=== PATIENT | female | born 1985 | race Caucasian/White ===

== ENCOUNTER → 2017-11-29 07:45 | Outpatient (CLI) | payer BC, SELFPAY ==
--- NOTE | 2017-11-29 07:51 | US_ITS ---
STUDY: ABDOMINAL ULTRASOUND - RIGHT UPPER QUADRANT REASON FOR VISIT: Female, 31 years old. Abdominal/right upper quadrant pain. TECHNIQUE: Ultrasound evaluation of the right upper quadrant was performed with real-time and static cisneros-scale imaging. TECHNICAL QUALITY: Adequate. COMPARISON: None. FINDINGS: Liver: The liver measures 16.9 cm. There is mild increased echogenicity consistent with a degree of fatty infiltration. The bile ducts are within normal limits. There is hepatic color flow. The direction of portal flow is hepatopetal. There is no demonstrated mass lesion. Gallbladder: Normal distended gallbladder. The gallbladder wall measures 2.3 mm. There is a negative sonographic Galvez's sign. There is no pericholecystic fluid. There are no gallstones. Common Bile Duct (C.B.D.): The common bile duct measures 3.1 mm. Pancreas: Normal size of the head, body and tail of the pancreas. There is normal echogenicity of the pancreas. There is no demonstrated pancreatic mass or cyst. Right Kidney: Normal size of the right kidney. The right kidney measures 10.9 x 5.0 x 4.4 cm. Normal renal cortex. The right cortex measures 1.2 cm. There is no demonstrated renal mass or cyst. There is no right hydronephrosis. US/Gallbladder IMPRESSION: Mild fatty infiltration of the liver, otherwise normal right upper quadrant ultrasound examination. Electronically Signed: Harish Elkins MD at 11:42 EDT , Service support ,
== END ==
PROVIDERS: Family Provider Family Medicine; PCP Family Medicine; Visit Provider Family Medicine
DX: R10.9 Unspecified abdominal pain (principal)
CPT/HCPCS: 76705

== ENCOUNTER → 2017-12-13 13:52 | Outpatient (CLI) | payer BC, SELFPAY ==
[2017-12-19 10:50] LABS: HPV Reflexed? NOT INDICATED
== END ==
PROVIDERS: Visit Provider Obstetrics & Gynecology
DX: Z12.4 Encounter for screening for malignant neoplasm of cervix (principal)
CPT/HCPCS: 88175; G0145

== ENCOUNTER → 2017-12-18 11:46 | Outpatient (CLI) | payer BC, SELFPAY ==
--- NOTE | 2017-12-18 11:51 | NM_ITS ---
CLINICAL: 32-year-old female with reported history of right upper quadrant abdominal pain. RADIONUCLIDE HEPATOBILIARY SCINTIGRAPHY COMPARISON: Abdominal ultrasound report 11/29/2017 FINDINGS: Following the intravenous administration of 5.4 mCi of 99m Tc Mebrofenin, hepatobiliary images reveal:. 1. Relatively prompt and homogeneous radiopharmaceutical concentration is noted by a normal sized liver. No parenchymal defects are identified. 2. Gallbladder activity is identified at 10 minutes post radiopharmaceutical administration. 3. Small intestinal tract is observed at 30 minutes following tracer injection. 4. Washout of the radiopharmaceutical by the hepatic parenchyma appears qualitatively normal. The patient was administered a fatty meal (8 ounces Boost). The post fatty meal ingestion gallbladder ejection fraction calculated at 60 minutes was noted to be 16.0 % (normal greater than 30%). NM/Hepatobilliary Imaging IMPRESSION: 1. ABNORMAL 99m Tc Mebrofenin hepatobiliary imaging examination with fatty meal ingestion. A. A gallbladder ejection fraction calculated to be less than 30% following the administration of an ingested fatty meal is consistent with the presence of functional hepatobiliary disease (gallbladder and/or sphincter of Oddi dyskinesia) and/or organic hepatobiliary disease (chronic acalculous cholecystitis and/or cystic duct syndrome) in patients with intermediate to high pretest probabilities of hepatobiliary illness. (Brett and Yandel, J Nucl Med 43: 1603, 2002). Electronically Signed: Jesse Perez DO at 23:26 EDT Tel , Service support ,
== END ==
LOC: NM 11:48
PROVIDERS: Family Provider Family Medicine; PCP Family Medicine; Visit Provider Family Medicine
DX: R10.9 Unspecified abdominal pain (principal)
CPT/HCPCS: 78226; A9537

== ENCOUNTER → 2017-12-22 10:36 | Outpatient (CLI) | payer BC, SELFPAY ==
[2017-12-22 12:09] LABS: AST(SGOT) 15 U/L (15-37); Alanine Aminotransfer ALT/SGPT 36 U/L (13-56); Albumin, Serum 3.3 g/dL (3.2-5.0); Alkaline Phosphatase 72 U/L (45-117); Bilirubin, Direct 0.08 mg/dL (0.00-0.30); Globulin 3.8 g/dL (2.2-4.2); Protein, Total 7.1 g/dL (6.4-8.2)
== END ==
PROVIDERS: Family Provider Family Medicine; PCP Family Medicine; Visit Provider Surgery
DX: K76.0 Fatty (change of) liver, not elsewhere classified (principal)
CPT/HCPCS: 36415; 80076

== ENCOUNTER 2018-01-01 11:16 | Day surgery (SDC) | payer BC, SELFPAY ==
[2018-01-01] VITALS (7 sets, daily range): BP systolic 91–115; BP diastolic 57–72; PULSE 69–84; RESP 16–18; TEMP 36.2–36.4; O2SAT 94–100; BMI 40.8
--- NOTE | 2018-01-01 11:22 | EKG12_ITS ---
Test Reason : PRE-OP Blood Pressure : / mmHG Vent. Rate : 074 BPM Atrial Rate : 074 BPM P-R Int : 166 ms QRS Dur : 086 ms QT Int : 400 ms P-R-T Axes : 047 015 017 degrees QTc Int : 444 ms Normal sinus rhythm with sinus arrhythmia Low voltage QRS Borderline ECG No previous ECGs available Confirmed by EVELINE MCGEE, FARAZ ([id number]), manuscript editor JULIÁN SANDS ([id number]) on 01/02/2018 3:02:32 PM Referred By: Arlette Faye Confirmed By:FARAZ MOSQUERA MD
[2018-01-01 11:40] LABS: Internal QC Validated? YES +Cl - CLEAR BKGD; Pregnancy, Urine Negative Negative
[2018-01-01 11:51] LABS: Hematocrit 39.3 % (37-47); Hemoglobin 13.4 g/dl (12.0-15.0); Mean Corp Hgb Conc 34.1 g/gl (32-36); Mean Corpuscular Hgb 27.8 pg (27.0-32.0); Mean Corpuscular Volume 81.5 fL (81-99); Mean Platelet Vol. 10.1 fl (6.2-12.0); Platelet Count 231 K/mm3 (150-450); RBC Distribution Width CV 12.9 % (11.6-14.6); RBC Distribution Width SD 37.9 fl (35.1-43.9); Red Blood Count 4.82 M/mm3 (4.2-5.4)
[2018-01-01 11:55] LABS: Scan Indicated on CBC? Y/N NO
--- NOTE | 2018-01-01 13:00 | GALL_PTH ---
PATIENT: EMMA CHAPMAN LOC: [facility] [place] U#:[id number] AGE/SX: 32/F ROOM: RE01/01/[address]: Dr. Arlette Faye MD : 1985 BED: DIS: 01/01/2018 SPEC #: [id number] RECD: 01/01/18 16:05 STATUS: ITALO BRANDIE #: [id number] KRISTI: 01/01/18 13:[address]: Arlette Faye DEPT: SURGICAL PATHOLOGY RECD BY: Melvin Oneill ENTERED: 01/02/18 09:37 SP TYPE: KRYSTAL BRAVO DR: Dr. Keaton Martinez MD Tissues: Gallbladder, NOS Procedures: Surgery Specimen Level III HEADER OPERATION: Laparoscopic cholecystectomy PRE-OP DIAGNOSIS: Biliary dyskinesia TISSUE SUBMITTED: Gallbladder MICROSCOPIC DIAGNOSIS Gallbladder: Mild chronic cholecystitis and focal cholesterolosis. No stones are identified in the container or in the gallbladder. SJ:harshad 01/03/18 MICROSCOPIC DESCRIPTION Slides are reviewed. GROSS DESCRIPTION Received is one container labeled with the patient's name and designated gallbladder. The specimen consists of a gallbladder measuring 8.5 x 3 x 3 cm. The external surface is smooth and glistening. Focally, it is granular, hemorrhagic and contains cautery artifact. The lumen of the gallbladder contains green mucoid bile and no calculi. The mucosa is bile-stained and without any mass lesions. The gallbladder wall averages 0.2 cm in thickness and is free of mass lesions. Dip Brazier sections of the gallbladder and the cystic duct are submitted in one cassette. / AM:harshad 01/02/18 TC:3 CPT: 55866
[2018-01-01] MEDS: Bupivacaine Mpf 0.5% 30 ML VIAL (14:25)
--- NOTE | 2018-01-01 14:37 | PCM.OPRPT ---
Report of Operation Date of Procedure: 01/01/18 Pre-Operative Diagnosis: Biliary dyskinesia Post-Operative Diagnosis: Same Surgery/Procedure Performed:: Laparoscopic cholecystectomy senior market intelligence consultant: Jacinda Estevez Anesthesiologist: Schuyler Power Special Medications: Cefotetan 2 g IV ?1 Specimen's removed: Gallbladder Estimated Blood Loss (mL): < 10 cc Fluids Replaced: 1700 Description of Procedure: Indications this is a 32 year-old female who developed abdominal pain and on workup was found to have biliary dyskinesia with ejection fraction of 16% with a normal common bile duct and normal LFTs. Laparoscopic cholecystectomy was elected. Description procedure: The patient was placed on operating table in supine position. General Anesthesia was induced. A timeout was completed verifying correct patient, procedure, site, position, social, and special equipment prior to beginning procedure. An orogastric tube was placed. The abdomen was prepped and draped in usual sterile fashion. An incision was made in the natural skin line above the umbilicus. Jenifer's was used to grab the stalk of the umbilicus and a Itzel's were placed at the junction of the umbilicus and fascia and elevated. 0 Vicryl suture on a UR 6 were placed on either side of the midline fascia. The fascia was elevated and incised. The peritoneum was elevated and incised. Entry into the peritoneum was confirmed visually and no bowel was noted in the vicinity of the incision. Beckford trocar was placed. The abdomen was insufflated with carbon dioxide to a pressure of 12-15 mmHg. Patient tolerated insufflation well. The laparoscope was then inserted and abdomen inspected. No injuries from initial trocar placement were noted. Additional trochars were then inserted in the following locations 5 mm trocar in the epigastrium and 2 more 5 mm trochars along the right costal margin. The abdomen was inspected no abnormalities were found. The table is placed in reverse Trendelenburg position with the right side up. The adhesions between the gallbladder and omentum were lysed sharply. The dome of the gallbladder was grasped with atraumatic grasper passed through the lateral port and retracted over the dome of the liver. Infundibulum was then grasped with atraumatic grasper through the midclavicular port and retracted to the right lower quadrant. This maneuver exposed Calot's triangle. The peritoneum overlying the gallbladder infundibulum was then incised and cystic duct and artery identified and circumferentially dissected. The cystic duct and artery were then doubly clipped and divided close to the gallbladder. The gallbladder then dissected from its peritoneal attachments by electrocautery. Hemostasis was checked and the gallbladder and contained stones were removed using the endoscopic retrieval bag through the umbilical port. The gallbladder is passed off table as specimen. The gallbladder fossa was copiously irrigated with saline and hemostasis obtained. There is no evidence of bleeding from the gallbladder fossa or cystic artery leakage of bile from the cystic duct stump. Secondary trochars removed under direct vision. No bleeding was noted the trocar sites. The laparoscope was withdrawn and umbilical trocar removed. The abdomen was allowed to collapse. The fascia of the 12 mm trocar was closed with a [id number] 0 Vicryl suture. The skin was closed with sutures of 4-0 Monocryl and Steri-Strips. The orogastric tube was removed and the patient was extubated. The patient tolerated procedure well and was taken to the postanesthesia care unit in stable condition. - Complications None
--- NOTE | 2018-01-01 14:41 | OP.PCM_ITS ---
Report of Operation Date of Procedure: 01/01/18 Pre-Operative Diagnosis: Biliary dyskinesia Post-Operative Diagnosis: Same Surgery/Procedure Performed:: Laparoscopic cholecystectomy finished hardware erector: Jacinda Estevez Anesthesiologist: Schuyler Power Special Medications: Cefotetan 2 g IV ?1 Specimen's removed: Gallbladder Estimated Blood Loss (mL): < 10 cc Fluids Replaced: 1700 Description of Procedure: Indications this is a 32 year-old female who developed abdominal pain and on workup was found to have biliary dyskinesia with ejection fraction of 16% with a normal common bile duct and normal LFTs. Laparoscopic cholecystectomy was elected. Description procedure: The patient was placed on operating table in supine position. General Anesthesia was induced. A timeout was completed verifying correct patient, procedure, site, position, social, and special equipment prior to beginning procedure. An orogastric tube was placed. The abdomen was prepped and draped in usual sterile fashion. An incision was made in the natural skin line above the umbilicus. Jenifer's was used to grab the stalk of the umbilicus and a Itzel's were placed at the junction of the umbilicus and fascia and elevated. 0 Vicryl suture on a UR 6 were placed on either side of the midline fascia. The fascia was elevated and incised. The peritoneum was elevated and incised. Entry into the peritoneum was confirmed visually and no bowel was noted in the vicinity of the incision. Beckford trocar was placed. The abdomen was insufflated with carbon dioxide to a pressure of 12-15 mmHg. Patient tolerated insufflation well. The laparoscope was then inserted and abdomen inspected. No injuries from initial trocar placement were noted. Additional trochars were then inserted in the following locations 5 mm trocar in the epigastrium and 2 more 5 mm trochars along the right costal margin. The abdomen was inspected no abnormalities were found. The table is placed in reverse Trendelenburg position with the right side up. The adhesions between the gallbladder and omentum were lysed sharply. The dome of the gallbladder was grasped with atraumatic grasper passed through the lateral port and retracted over the dome of the liver. Infundibulum was then grasped with atraumatic grasper through the midclavicular port and retracted to the right lower quadrant. This maneuver exposed Calot's triangle. The peritoneum overlying the gallbladder infundibulum was then incised and cystic duct and artery identified and circumferentially dissected. The cystic duct and artery were then doubly clipped and divided close to the gallbladder. The gallbladder then dissected from its peritoneal attachments by electrocautery. Hemostasis was checked and the gallbladder and contained stones were removed using the endoscopic retrieval bag through the umbilical port. The gallbladder is passed off table as specimen. The gallbladder fossa was copiously irrigated with saline and hemostasis obtained. There is no evidence of bleeding from the gallbladder fossa or cystic artery leakage of bile from the cystic duct stump. Secondary trochars removed under direct vision. No bleeding was noted the trocar sites. The laparoscope was withdrawn and umbilical trocar removed. The abdomen was allowed to collapse. The fascia of the 12 mm trocar was closed with a [id number] 0 Vicryl suture. The skin was closed with sutures of 4- 0 Monocryl and Steri-Strips. The orogastric tube was removed and the patient was extubated. The patient tolerated procedure well and was taken to the postanesthesia care unit in stable condition. - Complications None
--- NOTE | 2018-01-01 14:43 | PCM.DC.GB ---
Discharge Diet: Light diet - advance as tolerated Discharge Activity: May not drive while taking narcotic pain medications. May shower in (days): 1 Lifting Restrictions: no lifting >20 lbs for 4 weeks Call your doctor if your incision/area has: Continuous Slow Oozing, Sudden Increased Bleeding, Increased Pain/ Swelling, Increased Redness, Foul Smelling Discharge, Swelling at the incision site Call your doctor if you observe: Fever of 101 or Higher Remove Dressing in (days):: 1 - Keep Steri-Strips in place until they fall off months is been 10 days from surgery and then okay to remove Additional Instructions: OxyIR may cause constipation. Okay to take Tylenol max dose of 4 g daily with the OxyIR's could be up to 650 mg every 4 hours or up to 1000 mg every 6 hours--check the dosing of Tylenol on your bottle it may be 325 mg or 500 mg. Always take pain meds with food. To avoid constipation take a stool softener okay to take once a day or twice a day. If no bowel movements in a couple of days would recommend taking several doses of MiraLAX throughout the day. If no results would recommend the following day take half a bottle of magnesium citrate still if no results weight 6 hours and drink the other half of the bottle. Allergies/Adverse Reactions: Allergies ibuprofen Allergy (Severe, Verified 12/26/17 15:14) Throat swelling Medications to take at Discharge albuterol sulfate HFA 90 mcg/actuation aerosol inhaler 2 puff INHALATION Q6H PRN 12/22/17 citalopram 40 mg tablet 40 mg PO QDAY 12/22/17 loratadine 10 mg capsule 10 mg PO QDAY 12/22/17 norgestimate 0.25 mg-ethinyl estradiol 35 mcg tablet 1 tab PO QDAY 12/22/17 Omeprazole [Prilosec] 10 mg PO DAILY 12/26/17 Oxycodone [Oxyir] 5 - 10 mg PO Q4H PRN PRN 4 Days #30 tablet 01/01/18 The following prescriptions were given: Oxycodone [Oxyir] 5 - 10 mg PO Q4H PRN PRN 4 Days #30 tablet PRN Reason: Pain Primary Care Physician: Keaton Martinez MD [Primary Care Provider] - Test Results: Test results from this visit will be discussed in further detail at your follow-up appointment, if applicable. Please Follow Up With: Arlette Faye MD - Call [phone] with any concerns after 5:00 on the weekends When: Call the office for a follow-up appointment in 2 weeks. Proposed Discharge Date: 01/01/18
--- NOTE | 2018-01-01 14:47 | DCINST_ITS ---
Discharge Diet: Light diet - advance as tolerated Discharge Activity: May not drive while taking narcotic pain medications. May shower in (days): 1 Lifting Restrictions: no lifting >20 lbs for 4 weeks Call your doctor if your incision/area has: Continuous Slow Oozing, Sudden Increased Bleeding, Increased Pain/ Swelling, Increased Redness, Foul Smelling Discharge, Swelling at the incision site Call your doctor if you observe: Fever of 101 or Higher Remove Dressing in (days):: 1 - Keep Steri-Strips in place until they fall off months is been 10 days from surgery and then okay to remove Additional Instructions: OxyIR may cause constipation. Okay to take Tylenol max dose of 4 g daily with the OxyIR's could be up to 650 mg every 4 hours or up to 1000 mg every 6 hours-- check the dosing of Tylenol on your bottle it may be 325 mg or 500 mg. Always take pain meds with food. To avoid constipation take a stool softener okay to take once a day or twice a day. If no bowel movements in a couple of days would recommend taking several doses of MiraLAX throughout the day. If no results would recommend the following day take half a bottle of magnesium citrate still if no results weight 6 hours and drink the other half of the bottle. Allergies/Adverse Reactions: Allergies ibuprofen Allergy (Severe, Verified 12/26/17 15:14) Throat swelling Medications to take at Discharge albuterol sulfate HFA 90 mcg/actuation aerosol inhaler 2 puff INHALATION Q6H PRN 12/22/17 citalopram 40 mg tablet 40 mg PO QDAY 12/22/17 loratadine 10 mg capsule 10 mg PO QDAY 12/22/17 norgestimate 0.25 mg-ethinyl estradiol 35 mcg tablet 1 tab PO QDAY 12/22/17 Omeprazole [Prilosec] 10 mg PO DAILY 12/26/17 Oxycodone [Oxyir] 5 - 10 mg PO Q4H PRN PRN 4 Days #30 tablet 01/01/18 The following prescriptions were given: Oxycodone [Oxyir] 5 - 10 mg PO Q4H PRN PRN 4 Days #30 tablet PRN Reason: Pain Primary Care Physician: Keaton Martinez MD [Primary Care Provider] - Test Results: Test results from this visit will be discussed in further detail at your follow- up appointment, if applicable. Please Follow Up With: Arlette Faye MD - Call [phone] with any concerns after 5:00 on the weekends When: Call the office for a follow-up appointment in 2 weeks. Proposed Discharge Date: 01/01/18
--- NOTE | 2018-01-01 17:56 | SUR.PHASEII ---
PATIENT UNABLE TO VOID AFTER MULTIPLE ATTEMPTS, PATIENT REPORTS HAS A HX OF INABILITY TO VOID AFTER ANESTHESIA AND NEEDED STRAIGHT CATH. DR ODELL NOTIFIED, MAY STRAIGHT CATH X 1 AND D/C HOME. WILL ADVISE PATIENT IF UNABLE TO URINATE ON HER OWN WITHIN 6-8 HOURS, CONTACT DR ODELL.
== END 2018-01-01 19:10 | disposition home or self-care (01) ==
LOC: SDC 11:17 → AC 11:18
PROVIDERS: Anesthesiology; Family Provider Family Medicine; PCP Family Medicine; Visit Provider Surgery
PROC: (CPT 47610; principal; 2018-01-01 12:40)
DX: K81.1 Chronic cholecystitis (principal); K21.9 Gastro-esophageal reflux disease without esophagitis; K90.0 Celiac disease; K62.5 Hemorrhage of anus and rectum; J45.909 Unspecified asthma, uncomplicated; G47.30 Sleep apnea, unspecified; F32.9 Major depressive disorder, single episode, unspecified; Z79.51 Long term (current) use of inhaled steroids; Z79.899 Other long term (current) drug therapy
CPT/HCPCS: 00790; 47562; 81025; 85027; 88304; 93005; J7120; J2405

== ENCOUNTER → 2018-04-18 08:01 | Outpatient (CLI) | payer BC, SELFPAY ==
[2018-04-18 10:34] LABS: ALB/GLOB Ratio 0.8 RATIO (0.9-2.4); AST(SGOT) 27 U/L (15-37); Alanine Aminotransfer ALT/SGPT 65 U/L (13-56); Albumin, Serum 3.3 g/dL (3.2-5.0); Alkaline Phosphatase 84 U/L (45-117); Anion Gap 8 (5-15); BUN 9 mg/dL (7-18); BUN/Creat Ratio 9.4 RATIO (10-20); Calcium,Total 8.5 mg/dL (8.5-10.1); Chloride 107 mmol/L (98-107); Cholesterol 173 mg/dL (200); Creatinine, Serum 0.96 mg/dL (0.55-1.02); EST Glomerular Filtration Rate 72 mL/min (>60); Est Glom Filt Rate - Afr Amer 87 mL/min (>60); Globulin 3.9 g/dL (2.2-4.2); Glucose 92 mg/dL (74-106); High Density Lipoprotein 49 mg/dL; Potassium 3.9 mmol/L (3.5-5.1); Protein, Total 7.2 g/dL (6.4-8.2); Sodium Level 140 mmol/L (136-145); Triglycerides 193 mg/dL; Very Low Density Lipoprotein 39 mg/dL (5-40)
== END ==
PROVIDERS: Family Provider Family Medicine; PCP Family Medicine; Visit Provider Family Medicine
DX: K76.0 Fatty (change of) liver, not elsewhere classified (principal)
CPT/HCPCS: 36415; 80053; 80061

== ENCOUNTER → 2019-01-16 | Outpatient (CLI) | payer BC, SELFPAY ==
[2018-01-01 11:47] VITALS: BMI 40.8
[2019-01-22 16:52] LABS: HPV Reflexed? NOT INDICATED
== END | disposition home or self-care (01) ==
PROVIDERS: Family Provider Family Medicine; PCP Family Medicine; Referring Provider Obstetrics & Gynecology; Visit Provider Obstetrics & Gynecology
DX: Z12.4 Encounter for screening for malignant neoplasm of cervix (principal)
CPT/HCPCS: 88175; G0145

== ENCOUNTER → 2022-01-27 | Outpatient (CLI) | payer BC, SELFPAY | END | disposition home or self-care (01) | LOC: LABSPEC 15:45 | PROVIDERS: PCP Family Medicine; Visit Provider Family Medicine | DX: L03.90 Cellulitis, unspecified (principal) | CPT/HCPCS: 87070; 87205 ==

== ENCOUNTER → 2022-08-26 | Outpatient (CLI) | payer BC, SELFPAY ==
[2022-09-05 12:24] LABS: HPV APTIMA, High Risk Negative (Negative)
== END | disposition home or self-care (01) ==
LOC: LABSPEC 14:33
PROVIDERS: PCP Family Medicine; Visit Provider Student in an Organized Health Care Education/Training Program
DX: Z12.4 Encounter for screening for malignant neoplasm of cervix (principal)
CPT/HCPCS: 87624; 88175; G0145

== ENCOUNTER 2023-06-01 19:21 | Emergency (ER) | payer BC, SELFPAY ==
[2023-06-01 19:22] VITALS: BP 148/99; PULSE 114; RESP 18; TEMP 36.3; O2SAT 100; BMI 44.6
--- NOTE | 2023-06-01 19:39 | EX.ED.DYSGE1 ---
HPI History of Present Illness Chief Complaint: Dizziness [facility] Medical History (Updated 01/15/18 @ 08:39 by Candice Ansari) Abdominal pain Asthma Diarrhea Nausea & vomiting Home Medications albuterol sulfate 90 mcg/actuation aerosol inhaler (ProAir HFA) 2 puff inhalation Q6H PRN Asthma 12/22/17 [History Last Taken Unknown] norgestimate 0.25 mg-ethinyl estradiol 35 mcg tablet (Sprintec (28)) 1 tab PO QDAY 12/22/17 [History Last Taken Unknown] Allergy/AdvReac Type Severity Reaction Status Date / Time ibuprofen Allergy Severe Throat Verified 06/01/23 19:22 swelling Family History Grandmother Asthma Heart disease Colon cancer Surgical History (Updated 01/15/18 @ 08:39 by Candice Ansari) History of colonoscopy (~2006) History of endoscopy (~2006) Hx of cholecystectomy Social History (Updated 01/15/18 @ 10:12 by Lexie NEGRETE PA-C) Smoking Status: Never smoker alcohol intake: never substance use type: does not use EXAM Physical Exam Const Vital Signs: 06/01/23 19:22 06/01/23 20:20 06/01/23 22:28 Temperature 97.3 F L Temperature Source Temporal Pulse Rate 114 H 104 H Respiratory Rate 18 16 Blood Pressure 148/99 H 140/60 H Blood Pressure Mean 115 86 Pulse Ox 100 97 Oxygen Delivery Method Room Air MDM MDM MDM Narrative Medical decision making narrative: HISTORY OF PRESENT ILLNESS: 37-year-old female here with concern for dizziness. 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 Notes the symptoms essentially resolved. Denies any chest pain, shortness of breath, palpitations, recent vomiting, diarrhea, recent bleeding diathesis. The patient denies recent surgery in the last 4 weeks or immobilization in the last 3 days, denies previous diagnosis of DVT or PE, hemoptysis, unilateral leg swelling or malignancy with treatment the last 6 months or palliative. No estrogen use noted. Patient denies sudden onset of pain, no tearing sensation, no migratory symptoms, no new numbness, weakness or loss of sensation. Patient denies family history or personal history of Connective tissue disorders (Marfan's Syndrome, Ricardo Danlos etc) Order REVIEW OF SYSTEMS: Pertinent positives: Dizziness, diffuse weakness Pertinent negatives: Focal weakness, vomiting, fever, shortness of breath, chest pain, PHYSICAL EXAM: Nursing triage notes reviewed, Vital signs reviewed Constitutional: please see mdm HENT: MMM Eyes: Pupils equal round and reactive to light, Extraocular muscles intact Neck: No stridor, no JVD, full neck ROM Lungs: Clear to auscultation, No wheezing or rales. No increased work of breathing, no conversational dyspnea, no accessory muscle use, no nasal flaring. No respiratory distress noted Heart: Regular rate and rhythm, No murmurs, No rubs and No gallops, 2+ distal pulses (radial, femoral, posterior tibial) in all extremities Abdomen: Soft, there is no tenderness, rigidity, rebound or guarding, no obvious peritoneal signs, no palpable pulsatile abdominal masses, no auscultated abdominal bruit : No CVAT Extremities: No edema Neuro: Alert and oriented x3, neuro exam at baseline, cranial nerves II through XII are intact. No pain with extraocular muscle movement. There is negative test of skew. 5 of 5 strength in upper and lower extremities in flexion extension. Intact sensation to light touch in upper and lower extremity dermatomes. No truncal or extremity ataxia. No dysdiadochokinesia. Normal gait. 2+ reflexes in upper and lower extremities. No meningeal signs. Negative Babinski. NIH of 0. Skin: No rash or lesions noted MEDICAL DECISION MAKING: Chief Complaint: Dizziness External records reviewed: No recent cardiac catheterizations, echocardiograms or stress test noted in the chart. No recent Niño imaging of the brain Factors affecting care: History of cholecystectomy Social determinants of health: none History obtained from others: none Consults: none [facility] Narrative: The patient presents hemodynamically stable, afebrile and nontoxic-appearing. Exam without focal neurologic deficits. No focal cardiopulmonary normalities I considered the following differential diagnosis: Posterior circulation CVA, aortic dissection, PE, ACS ALL IMAGES (IF OBTAINED) HAVE BEEN PERSONALLY REVIEWED AND INTERPRETED BY MYSELF. EKG with sinus tachycardia, normal axis, normal normals, no STEMI CBC with leukocytosis suggestive of systemic inflammation, no anemia or thrombocytopenia BMP with mild hypokalemia, no ROSE, no anion gap to suggest endorgan hypoperfusion High-sensitivity troponin is negative, no evidence of myocardial ischemia BNP normal limits suggestive of no increased ventricular or myocyte stretch I have personally reviewed the patient's chest x-ray. Chest x-ray is unremarkable for pulmonary edema, pneumothorax, pneumonia or focal cardiopulmonary abnormality. The synthesis of the patient's history, physical exam, labs and vital signs suggest no acute life or limb threatening pathology. I suspect the patient suffered from a vasovagal event. No evidence of arrhythmia, myocardial ischemia, PE, dissection, anemia, pneumonia or pneumothorax at this time. No indication for further imaging or hospitalization at this time. The patient is appropriate for discharge home. The patient and/or family, caregivers express understanding. The patient and/or family, caregivers agrees with the plan. Shared decision making: I will have a discussion with the patient and or visitors regarding risk/benefits of further testing or admission. They will be made aware of of the risk/benefits inherent in this decision they will be given the opportunity to voice understanding. Total critical care time today provided was at least 0 minutes. This excludes separately billable procedures. Critical care time (if documented) is secondary to the patient having high probability of clinically significant/life threatening deterioration in the patient's condition which required my urgent intervention. Impression: 1. Dizziness 2. Vasovagal syncope 3. Hypokalemia Dispo: Discharge Lab Data Labs: Laboratory Results - last 24 hr 06/01/23 20:08 WBC 11.4 H RBC 5.37 Hgb 14.2 Hct 43.4 MCV 80.8 L MCH 26.4 L MCHC 32.7 RDW Std Deviation 37.4 RDW Coeff of Sarahi 12.9 Plt Count 305 MPV 10.2 Immature Gran % (Auto) 0.400 Neut % (Auto) 68.8 Lymph % (Auto) 23.1 [place] % (Auto) 6.2 Eos % (Auto) 1.1 Baso % (Auto) 0.4 Absolute Neuts (auto) 7.8 H Absolute Lymphs (auto) 2.63 Nucleated RBC % 0 Sodium 137 Potassium 3.2 L Chloride 105 Carbon Dioxide 26.0 Anion Gap 6 BUN 9 Creatinine 1.12 H Estim Creat Clear Calc 65.01 Est GFR (MDRD) Af Amer 71 Est GFR (MDRD) Non-Af 58 L BUN/Creatinine Ratio 8.0 L Glucose 144 H Calcium 9.1 Troponin I High Sens 4 B-Natriuretic Peptide < 2.0 Radiography Diagnostic Testing: Clinical Impression(s) from Imaging Studies Chest X-Ray 06/01/23 20:10 IMPRESSION: No acute radiographic abnormalities. Electronically Signed: Isiah Aj MD at 20:46 EST , Discharge Plan Triage Chief Complaint: Dizziness ED Provider: Boyd Roberts Dx/Rx/DC Orders Instructions: ED Dizziness, Uncertain Cause, ED Near-Fainting- Vagal Reaction Prescriptions: No Action norgestimate-ethinyl estradiol [Sprintec (28)] 0.25-35 mg-mcg tablet 1 tab PO QDAY albuterol sulfate [ProAir HFA] 90 mcg/actuation HFA aerosol inhaler 2 puff INHALATION Q6H PRN (Reason: Asthma) Stand Alone Forms: ED Work / School Excuse Primary Care Provider: Keaton Martinez Referrals: Keaton Martinez MD [Primary Care Provider] - Activity Restrictions/Additional Instructions: Thank you for trusting us with your care today! Please take Tylenol (2 pills, 650 mg), ibuprofen (2 pills, 400 mg) every 6 hours as needed for pain and fever control. Please return to the emergency department if your symptoms change or worsen. Please follow with your primary care physician for further outpatient evaluation and management. Disposition Disposition: Home, Self Care Discharge Date/Time: 06/01/23 22:29
--- NOTE | 2023-06-01 20:00 | EKG12_ITS ---
Test Reason : DIZZY Blood Pressure : / mmHG Vent. Rate : 111 BPM Atrial Rate : 111 BPM P-R Int : 146 ms QRS Dur : 078 ms QT Int : 318 ms P-R-T Axes : 051 022 040 degrees QTc Int : 432 ms Sinus tachycardia Low voltage QRS ST & T wave abnormality, consider lateral ischemia Abnormal ECG Confirmed by PIERRE MCGEE, [place] ([id number]), publishing editor YUNIER SOTELO ([id number]) on 06/05/2023 1:32:04 P M Referred By: Confirmed By:GABRIEL JAY MD
--- NOTE | 2023-06-01 20:10 | RAD_ITS ---
INDICATION: chest pain EXAMINATION/TECHNIQUE: X-RAY - XR Chest 1 View COMPARISON: None. FINDINGS: The lungs are clear. The cardiomediastinal silhouette is unremarkable. No pleural effusion or pneumothorax. No acute osseous abnormalities. RAD/Chest 1 View (Portable) IMPRESSION: No acute radiographic abnormalities. Electronically Signed: Isiah Aj MD at 20:46 EST ,
[2023-06-01 20:19] LABS: Absolute Lymphocyte Count 2.63 X10^3/uL (0.83-4.51); Absolute Neutrophil Count 7.8 X10^3/uL (2.0-7.7); Basophil# 0.05 X10^3/uL; Basophil% 0.4 % (0-1); Eosinophil# 0.12 X10^3/uL; Eosinophils% 1.1 % (0-5); Hematocrit 43.4 % (37-47); Hemoglobin 14.2 g/dL (12.0-15.0); Lymphocyte # 2.63 X10^3/ul (0.83-4.51); Lymphocyte % 23.1 % (19-41); Mean Corp Hgb Conc 32.7 g/dL (32-36); Mean Corpuscular Hgb 26.4 pg (27.0-32.0); Mean Corpuscular Volume 80.8 fL (81-99); Mean Platelet Vol. 10.2 fl (6.2-12.0); Monocyte% 6.2 % (0-10); NRBC Flagged by Analyzer 0 % (0-5); Neutrophil # 7.82 X10^3/uL (2.7-7.7); Neutrophil % 68.8 % (47-70); Platelet Count 305 K/mm3 (150-450); RBC Distribution Width CV 12.9 % (11.6-14.6); RBC Distribution Width SD 37.4 fl (35.1-43.9); Red Blood Count 5.37 M/mm3 (4.2-5.4); White Blood Count 11.4 K/mm3 (4.4-11.0)
[2023-06-01] MEDS: 0.9% Normal Saline (1000mL) 1,000 ML 1000 ML IV (20:19)
[2023-06-01 20:36] LABS: Anion Gap 6 (5-15); BUN 9 mg/dL (7-18); Calcium,Total 9.1 mg/dL (8.5-10.1); Chloride 105 mmol/L (98-107); Creatinine, Serum 1.12 mg/dL (0.55-1.02); EST Glomerular Filtration Rate 58 mL/min (>60); Est Glom Filt Rate - Afr Amer 71 mL/min (>60); Estimated Creatinine Clearance 65.01 ml/min; Glucose 144 mg/dL (74-106); Potassium 3.2 mmol/L (3.5-5.1); Sodium Level 137 mmol/L (136-145); Troponin-I HS (w/2H Reflex) 4 pg/mL (3.0-54.0)
[2023-06-01 21:09] LABS: BNP,B-Type NATRIURETIC PEPTIDE < 2.0 pg/mL (0-100)
[2023-06-01] MEDS: Potassium Chloride Oral Tablet 20 MEQ 40 MEQ PO (21:25)
[2023-06-01 22:14] LABS: Reflex Troponin-HS? (from REC) Y
[2023-06-01 22:28] VITALS: BP 140/60; PULSE 104; RESP 16; O2SAT 97
== END 2023-06-01 22:29 | disposition home or self-care (01) ==
PROVIDERS: Emergency Provider Emergency Medicine; PCP Family Medicine; Visit Provider Emergency Medicine
DX: E87.6 Hypokalemia (principal); R11.0 Nausea; R55 Syncope and collapse; R42 Dizziness and giddiness; J45.909 Unspecified asthma, uncomplicated
CPT/HCPCS: 71045; 80048; 83880; 84484; 85025; 93005; 96360; 96361; 99283; J7030; A4216

== ENCOUNTER → 2025-05-07 | Outpatient (CLI) | payer BC, SELFPAY ==
--- OUTSIDE RECORDS SUMMARY | 2025-05-07 16:39 | XMS RPT_ITS | CCD ---
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 Name Role Phone Wendie Valdez Attending Unavailable Keaton Wise Primary Care Unavailable Keaton Wise Primary Care Unavailable Boyd Roberts Attending Unavailable KEATON WISE Primary Care Unavailable ALEXSANDER MONROE Attending Unavailable Allergies Allergy Classification Reported Allergen(s) Allergy Type Date of Onset Reaction(s) Facility (4 sources) Ibuprofen; Translations: [IBUPROFEN] Drug Allergy 3 Throat swelling [facility] (1 source) Ibuprofen Drug Allergy 3 [facility] Repository (1 source) Gluten; Translations: [GLUTEN] Propensity to adverse reactions to drug (disorder) 3 [facility] Repository Medications Current Medications Medication Drug Class(es) Dates Sig (Normalized) Sig (Original) [id number] 200 actuat albuterol 0.09 mg/actuat metered dose inhaler (3 sources) beta2-Adrenergic Agonist Start: 12-22-2017 take 1 puff(s) by inhalation every six hours Albuterol Sulfate (Proair Hfa) 90 mcg/actuation HFA aerosol inhaler Active 2 PUFF INHALATION EVERY 6 HOURS December 21, 2017 11:00pm Norgestimate-Ethin yl Estradiol (3 sources) Progestin, Estrogen Start: 12-22-2017 take 1 tablet by mouth once daily Norgestimate-Ethi nyl Estradiol (Sprintec (28)) 0.25-35 mg-mcg tablet Active 1 TABLET PO daily December 21, 2017 11:00pm Start: 12-22-2017 take 1 tablet by bibi th once daily Norgestimate-Ethinyl Estradiol (Sprintec (28)) 0.25-35 mg-mcg tablet Active 1 TABLET PO daily December 22, 2017 12:00am Completed/Discontinued Medications Medication Drug Class(es) Dates Sig (Normalized) Sig (Original) citalopram 40 mg oral tablet (3 sources) Serotonin Reuptake Inhibitor Start: 12-22-2017 End: 06-01-2023 take 1 tablet by mouth once daily Citalopram (Celexa) 40 mg tablet Discontinued 40 MG PO daily December 21, 2017 11:00pm June 01, 2023 7:31pm loratadine 10 mg oral capsule (3 sources) Start: 12-22-2017 End: 06-01-2023 take 10 mg by mouth once daily Loratadine Discontinued 10 MG PO daily December 21, 2017 11:00pm June 01, 2023 7:31pm omeprazole 10 mg delayed release oral capsule (3 sources) Proton Pump Inhibitor Start: 12-26-2017 End: 06-01-2023 take 10 mg by mouth once daily Omeprazole Discontinued 10 MG PO DAILY December 25, 2017 11:00pm June 01, 2023 7:31pm oxyCODONE hydrochloride 5 mg oral tablet (3 sources) Opioid Agonist Start: 01-01-2018 End: 01-15-2018 take 5-10 mg by mouth every four hours as needed Oxycodone Discontinued 5 - 10 MG PO EVERY 4 HOURS NEEDED 30 December 31, 2017 11:00pm January 15, 2018 7:40am Problems Active Problems Problem Classification Problem Date Documented Da te Episodic/Chronic Asthma (3 sources) Asthma; Translations: [Unspecified asthma, uncomplicated] 01-15-2018 Chronic Conditions associated with dizziness or vertigo (1 source) Dizziness and giddiness; Translations: [Dizziness and giddiness] Onset: 06-07-2023 Episodic Other lower respiratory disease (1 source) Wheezing; Translations: [Wheezing] Onset: 03-13-2025 Episodic Past or Other Problems Problem Classification Problem Date Documented Da te Episodic/Chronic Abdominal pain (3 sources) Abdominal pain; Translations: [Unspecified abdominal pain] 01-15-2018 Episodic Nausea and vomiting (3 sources) Nausea and vomiting; Translations: [Nausea with vomiting, unspecified] 01-15-2018 Episodic Other gastrointestinal disorders (3 sources) Diarrhea; Translations: [Diarrhea, unspecified] 01-15-2018 Episodic Other screening for suspected conditions (not mental disorders or infectious disease) (1 source) Encounter for screening for malignant neoplasm of cervix; Translations: [Encounter for screening for malignant neoplasm of cervix] Onset: 09-02-2022 Episodic Residual codes; unclassified (3 sources) Past history of procedure; Translations: [Other specified postprocedural states] 01-15-2018 Episodic Residual codes; unclassified (3 sources) History of colonoscopy; Translations: [Other specified postprocedural states] 01-15-2018 Episodic Results Test Name Value Interpretation Reference Range Facility CNOVon 03-13-2025 CNOV Office Visit ([facility]) ROMANA CHAPMAN ([id number]) 1985 F Date Time Provider Department 03/13/25 5:30 PM ALEXSANDER MONROE WOVIVIANE During your visit today, we recorded the following information about you: Temperature Pulse Respiration Blood pressure 97 degrees 96/minute 16/minute 126/78 Weight Last Period 120.8 kg 03/01/25 Alexsander Monroe MD 03/13/2025 5:52 PM Signed [facility] Subjective Romana Chapman is a 39 year old female. Patient presents with: Wheezing chest tightness Shortness of Breath Chest Congestion Patient presents for wheezing that started yesterday. She had initial cold started couple weeks weeks ago and has been slowly improving with lingering nasal congestion and cough. She has had improved sore throat, rhinorrhea, and postnasal drainage. She denies any fever, chills, palpitations. Body aches may be slightly worse than normal. Yesterday she noticed wheezing and chest tightness. She notices some dyspnea with conversation but has no shortness of breath with ambulation across the parking lot. She has a history of exercise-induced asthma. She had bronchitis or pneumonia last year. She has taken nothing for symptoms. Wheezing Associated symptoms include shortness of breath. Shortness of Breath Associated symptoms include wheezing. Review of Systems Respiratory: Positive for shortness of breath and wheezing. Objective BP 126/78 Pulse 96 Temp 36.1 ?C (97 ?F) (Tympanic) Resp 16 Wt 120.8 kg (266 lb 5.1 oz) LMP 03/01/2025 SpO2 99% Physical Exam Constitutional: General: She is not in acute distress. HENT: Right Ear: Tympanic membrane and ear canal normal. Left Ear: Tympanic membrane and ear canal normal. Nose: Congestion present. Right Sinus: No maxillary sinus tenderness or frontal sinus tenderness. Left Sinus: No maxillary sinus tenderness or frontal sinus tenderness. Mouth/Throat: Mouth: Mucous membranes are moist. Pharynx: Posterior oropharyngeal erythema present. No oropharyngeal exudate. Eyes: Extraocular Movements: Extraocular movements intact. Conjunctiva/sclera: Conjunctivae normal. Pupils: Pupils are equal, round, and reactive to light. Cardiovascular: Rate and Rhythm: Normal rate and regular rhythm. Heart sounds: No murmur heard. Pulmonary: Effort: No respiratory distress. Breath sounds: No wheezing, rhonchi or rales. Musculoskeletal: Cervical back: Neck supple. Lymphadenopathy: Cervical: No cervical adenopathy. Neurological: Mental Status: She is alert. {ASSESSMENT/PLAN: 1. Wheezing - ICD9: 786.07, ICD10: R06.2 Exacerbation of reactive airway disease. Treated with steroid and bronchodilator. - ALBUTEROL SULFATE HFA 90 MCG/ACTUATION AEROSOL INHALER - INHALATIONAL SPACING DEVICE - PREDNISONE 10 MG TABLET Follow up with worsening cough, worsening shortness of breath, increasing chest pain, palpitations, or late onset fever. Alexsander Monroe MD Differential Diagnoses - Reactive airway disease exacerbated by viral URI - Pneumonia is less likely for the following reason(s): Normal exam, afebrile, mostly nonproductive cough - Pulmonary embolism is less likely for the following reason(s): HANDP not suggestive - Acute cardiovascular event is less likely for the following reason(s): HANDP not suggestive Procedures Allergies As of Date: 03/13/2025 Noted Allergy Reaction GLUTEN 09/25/2012 8 - GI Upset IBUPROFEN 09/25/2012 10 - Anaphylaxis Date Reviewed: 03/13/2025 Reviewed by: Alfreda Castellon MA - Fully Assessed Reason for Visit: Wheezing [181] chest tightness [Other] Shortness of Breath [227] Chest Congestion [236] Primary Visit Diagnosis:Wheezing [R06.2] Order(s):albuterol HFA (PROVENTIL HFA, VENTOLIN HFA) 90 mcg/actuation inhalerInhale 2 puffs as instructed every 4 hours as needed for wheezing/shortness of breath.Disp: 8 gRfl: 0 Inhalational Spacing Device1 device one time only for 1 dose.Disp: 1 eachRfl: 0 predniSONE (DELTASONE) 10 mg tabletTake 5 tablets by mouth once daily for 1 day, THEN 4 tablets once daily for 1 day, THEN 3 tablets once daily for 1 day, THEN 2 tablets once daily for 1 day, THEN 1 tablet once daily for 1 day.Disp: 15 tabletRfl: 0 Prescriptions as of 03/13/2025 - albuterol HFA (PROVENTIL HFA, VENTOLIN HFA) 90 mcg/actuation inhaler Inhale 2 puffs as instructed every 4 hours as needed for wheezing/shortness of breath. - Inhalational Spacing Device 1 device one time only for 1 dose. - predniSONE (DELTASONE) 10 mg tablet Take 5 tablets by mouth once daily for 1 day, THEN 4 tablets once daily for 1 day, THEN 3 tablets once daily for 1 day, THEN 2 tablets once daily for 1 day, THEN 1 tablet once daily for 1 day. - norgestimate 0.25 mg-ethinyl estradiol 35 mcg (SPRINTEC) 0.25-35 mg-mcg per tablet Take 1 tablet by mouth once daily. - citalopram 20 mg tab (more content not included)... Normal [facility] 12 Lead EKGon 06-01-2023 12 Lead EKG [facility] Cardiovascular Services [address] [place] [address] 12 Lead EKG 06/01/232002 MR#: [id number] Acct: [id number] Name: ROMANA CHAPMAN Rep #: [id number] : 1985 37 From: Re Oro MD Attending Dr: Status: DEP ER Ordering Dr: Boyd Roberts DO Date: 06/01/23 Location: ED Sex: F C Admitted: Test Reason : DIZZY Blood Pressure : / mmHG Vent. Rate : 111 BPM Atrial Rate : 111 BPM P-R Int : 146 ms QRS Dur : 078 ms QT Int : 318 ms P-R-T Axes : 051 022 040 degrees QTc Int : 432 ms Sinus tachycardia Low voltage QRS ST T wave abnormality, consider lateral ischemia Abnormal ECG Confirmed by PIERRE MCGEE, BROOLKYN ([id number]), park interpreter YUNIER SOTELO ([id number]) on 06/05/2023 1:32:04 PM Referred By: Confirmed By:GABRIEL ORO MD 06/05/23 1332 Date Re Oro MD CC: Dr. Keaton Wise MD; Dr. Boyd Roberts, DO Signed Normal [facility] Absolute lymphocyte countOrd ered By: Boyd Roberts on 06-01-2023 Lymphocytes Auto (Unsp spec) [#/Vol] 2.63 10*3/uL 0.83-4.51 [facility] BNP,B-Type NATRIURETIC PEPTI Joseph 06-01-2023 Natriuretic peptide B (Bld) [Mass/Vol] pg/mL Normal 0-100 [facility] Comment on above: Performed By: #### L 100.0100, L500.2500, L501.5425, [id number] #### [facility] [address] [place], [address] Basic Metabolic Profile (BMP )on 06-01-2023 BUN/CRE 8.0 RATIO Low 10-20 [facility] Comment on above: Order Comment: 1 Y Performed By: #### L 100.0100, L500.2500, L501.5425, [id number] #### [facility] [address] [place], [address] CA,Total 9.1 mg/dL Normal 8.5-10.1 [facility] Comment on above: Order Comment: 1 Y Performed By: #### L 100.0100, L500.2500, L501.5425, [id number] #### [facility] [address] [place], [address] Chloride [Moles/Vol] 105 mmol/L Normal 98-107 [facility] Comment on above: Order Comment: 1 Y Performed By: #### L 100.0100, L500.2500, L501.5425, [id number] #### [facility] [address] [place], [address] CO2 [Moles/Vol] 26.0 mmol/L Normal 21.0-32.0 [facility] Comment on above: Order Comment: 1 Y Performed By: #### L 100.0100, L500.2500, L501.5425, [id number] #### [facility] [address] [place], [address] Creatinine [Mass/Vol] 1.12 mg/dL High 0.55-1.02 [facility] Comment on above: Order Comment: 1 Y Result Comment: The validity of the calculated GFR GFRAA in patients over 70 years has not been determined. Clinical correlation is essential. Performed By: #### L 100.0100, L500.2500, L501.5425, L503.6620 #### [facility] [address] [place], [address] ECRCL 65.01 ml/min Normal [facility] Comment on above: Order Comment: 1 Y Performed By: #### L 100.0100, L500.2500, L501.5425, L503.6620 #### [facility] [address] [place], [address] EST GFR - AA 71 mL/min Normal >60 [facility] Comment on above: Order Comment: 1 Y Result Comment: Afri can Nauruan GFR Calc Performed By: #### L 100.0100, L500.2500, L501.5425, L503.6620 #### [facility] [address] [place], [address] GAP 6 Normal 5-15 [facility] Comment on above: Order Comment: 1 Y Performed By: #### L 100.0100, L500.2500, L501.5425, L503.6620 #### [facility] [address] [place], [address] GFR/1.73 sq M.predicted among non-blacks MDRD (S/P/Bld) [Vol rate/Area] 58 mL/min/{1.73_m2} Low >60 [facility] Comment on above: Order Comment: 1 Y Result Comment: Non- GFR Calc Performed By: #### L 100.0100, L500.2500, L501.5425, L503.6620 #### [facility] [address] [place], [address] Glucose [Mass/Vol] 144 mg/dL High 74-106 [facility] Comment on above: Order Comment: 1 Y Result Comment: Fast ing Glucose result greater than or equal to 126 mg/dL suggests DIABETES MELLITUS per A.D.A. criteria. Performed By: #### L 100.0100, L500.2500, L501.5425, L503.6620 #### [facility] [address] [place], [address] Potassium [Moles/Vol] 3.2 mmol/L Low 3.5-5.1 [facility] Comment on above: Order Comment: 1 Y Performed By: #### L 100.0100, L500.2500, L501.5425, L503.6620 #### [facility] [address] [place], [address] Sodium [Moles/Vol] 137 mmol/L Normal 136-145 [facility] Comment on above: Order Comment: 1 Y Performed By: #### L 100.0100, L500.2500, L501.5425, L503.6620 #### [facility] [address] [place], [address] Urea nitrogen [Mass/Vol] 9 mg/dL Normal 7-18 [facility] Comment on above: Order Comment: 1 Y Performed By: #### L 100.0100, L500.2500, L501.5471, L503.6631 #### [facility] [address] [place], [address] Basophil percentageOrdered B y: Boyd Roberts on 06-01-2023 Basophils/100 WBC (Bld) 0.4 % 0-1 [facility] Chloride [Moles/Vol] 105 mmol/L 98-107 [facility] Eosinophils/100 WBC (Bld) 1.1 % 0-5 [facility] Glucose [Mass/Vol] 144 mg/dL 74-106 [facility] Comment on above: Fasting Glucose resu lt greater than or equal to 126 mg/dL suggests DIABETES MELLITUS per A.D.A. criteria. Neutrophils (Bld) [#/Vol] 7.8 10*3/uL 2.0-7.7 [facility] Neutrophils/100 WBC (Bld) 68.8 % 47-70 [facility] Potassium [Moles/Vol] 3.2 mmol/L 3.5-5.1 [facility] Sodium [Moles/Vol] 137 mmol/L 136-145 [facility] WBC (Bld) [#/Vol] 11.4 10*3/uL 4.4-11.0 [facility] Blood erythrocytes count (nu mber/volume)Ordered By: Boyd Roberts on 06-01-2023 RBC (Bld) [#/Vol] 5.37 10*6/uL 4.2-5.4 [facility] Blood hemoglobin measurement (mass/volume)Ordered By: Boyd Roberts on 06-01-2023 Hemoglobin (Bld) [Mass/Vol] 14.2 g/dL 12.0-15.0 [facility] Blood lymphocytes/100 leukoc ytesOrdered By: Boyd Roberts on 06-01-2023 Lymphocytes/100 WBC (Bld) 23.1 % 19-41 [facility] Blood monocytes/100 leukocyt esOrdered By: Boyd Roberts on 06-01-2023 Monocytes/100 WBC (Bld) 6.2 % 0-10 [facility] Blood platelet mean volumeOr dered By: Boyd Roberts on 06-01-2023 Platelet mean volume (Bld) [Entitic vol] 10.2 fL 6.2-12.0 [facility] CBC W/Diff, Automatedon 05-19 Absolute Lymph 2.63 X10 3/uL Normal 0.83-4.51 [facility] Comment on above: Performed By: #### L 100.0100, L500.2500, L501.5425, L503.6620 #### [facility] [address] [place], [address] Absolute Neut 7.8 X10 3/uL High 2.0-7.7 [facility] Comment on above: Performed By: #### L 100.0100, L500.2500, L501.5425, L503.6620 #### [facility] [address] [place], [address] Basophils/100 WBC (Bld) 0.4 % Normal 0-1 [facility] Comment on above: Performed By: #### L 100.0100, L500.2500, L501.5425, L503.6620 #### [facility] [address] [place], [address] Eosinophils/100 WBC (Bld) 1.1 % Normal 0-5 [facility] Comment on above: Performed By: #### L 100.0100, L500.2500, L501.5425, L503.6620 #### [facility] [address] [place], [address] Erythrocyte distribution width (RBC) [Ratio] 12.9 % Normal 11.6-14.6 [facility] Comment on above: Performed By: #### L 100.0100, L500.2500, L501.5425, L503.6620 #### [facility] [address] [place], [address] Hematocrit (Bld) [Volume fraction] 43.4 % Normal 37-47 [facility] Comment on above: Performed By: #### L 100.0100, L500.2500, L501.5425, L503.6620 #### [facility] [address] [place], [address] Hemoglobin (Bld) [Mass/Vol] 14.2 g/dL Normal 12.0-15.0 [facility] Comment on above: Performed By: #### L 100.0100, L500.2500, L501.5425, L503.6620 #### [facility] [address] [place], [address] IG% 0.400 Normal 0.0-0.9 [facility] Comment on above: Result Comment: IG% - Immature Granulocytes (promyelocytes, myelocytes and metamyelocytes) > 1% indicates that a LEFT SHIFT is Present. Performed By: #### L 100.0100, L500.2500, L501.5425, L503.6620 #### [facility] [address] [place], [address] Lymphocytes/100 WBC (Bld) 23.1 % Normal 19-41 [facility] Comment on above: Performed By: #### L 100.0100, L500.2500, L501.5425, L503.6620 #### [facility] [address] [place], [address] MCH (RBC) [Entitic mass] 26.4 pg Low 27.0-32.0 [facility] Comment on above: Performed By: #### L 100.0100, L500.2500, L501.5425, L503.6620 #### [facility] [address] [place], [address] MCHC (RBC) [Mass/Vol] 32.7 g/dL Normal 32-36 [facility] Comment on above: Performed By: #### L 100.0100, L500.2500, L501.5425, L503.6620 #### [facility] [address] [place], [address] MCV (RBC) [Entitic vol] 80.8 fL Low 81-99 [facility] Comment on above: Performed By: #### L 100.0100, L500.2500, L501.5425, L503.6620 #### [facility] [address] [place], [address] Monocytes/100 WBC (Bld) 6.2 % Normal 0-10 [facility] Comment on above: Performed By: #### L 100.0100, L500.2500, L501.5425, L503.6620 #### [facility] [address] [place], [address] Neutrophils/100 WBC (Bld) 68.8 % Normal 47-70 [facility] Comment on above: Performed By: #### L 100.0100, L500.2500, L501.5425, L503.6620 #### [facility] [address] [place], [address] Nucleated RBC (Bld) [#/Vol] 0 10*3/uL Normal 0-5 [facility] Comment on above: Performed By: #### L 100.0100, L500.2500, L501.5425, L503.6620 #### [facility] [address] [place], [address] Platelet mean volume (Bld) [Entitic vol] 10.2 fL Normal 6.2-12.0 [facility] Comment on above: Performed By: #### L 100.0100, L500.2500, L501.5425, L503.6620 #### [facility] [address] [place], [address] Platelets (Bld) [#/Vol] 305 10*3/uL Normal 150-450 [facility] Comment on above: Performed By: #### L 100.0100, L500.2500, L501.5425, L503.6620 #### [facility] [address] [place], [address] RBC (Bld) [#/Vol] 5.37 10*6/uL Normal 4.2-5.4 [facility] Comment on above: Performed By: #### L 100.0100, L500.2500, L501.5425, L503.6620 #### [facility] [address] [place], [address] RDW SD 37.4 fl Normal 35.1-43.9 [facility] Comment on above: Performed By: #### L 100.0100, L500.2500, L501.5425, L503.6620 #### [facility] [address] [place], [address] WBC (Bld) [#/Vol] 11.4 10*3/uL High 4.4-11.0 [facility] Comment on above: Performed By: #### L 100.0100, L500.2500, L501.5425, L503.6620 #### [facility] [address] [place], [address] Chest 1 View (Portable)on Chest 1 View (Portable) [facility] Imaging Services [address] [place] [address] Chest 1 View (Portable) MR#: [id number] Acct: [id number] Name: ROMANA CHAPMAN Rep #: [id number] : 1985 F 37 From: Isiah feliciano MD PCP: Dr. Keaton Wise MD Status: [facility] ER Study: Chest 1 View (Portable) Date of Exam: 06/01/23 Exam# [id number] Ordering Dr: Boyd Roberts DO [id number] INDICATION: chest pain EXAMINATION/TECHNIQUE : X-RAY - XR Chest 1 View COMPARISON: None. FINDINGS: The lungs are clear. The cardiomediastinal silhouette is unremarkable. No pleural effusion or pneumothorax. No acute osseous abnormalities. RAD/Chest 1 View (Portable) IMPRESSION: No acute radiographic abnormalities. Electronically Signed: Isiah Aj MD at 20:46 EST , CC: Dr. Keaton Wise MD; Dr. Boyd Roberts DO [employer] Supervisor: Signed Normal [facility] Determination of erythrocyte mean corpuscular volume (MCV)Ordered By: Boyd Roberts on 06-01-2023 MCV (RBC) [Entitic vol] 80.8 fL 81-99 [facility] Emergency Department Summary on 06-01-2023 Emergency Department Summary [facility] Medical Records Department [address] [place] [address] Emergency Department Summary 06/01/23 MR#: [id number] Acct: [id number] Name: ROMANA CHAPMAN Rep #: [id number] : 1985 37 From: Boyd Roberts DO PCP: Dr. Keaton Wise MD Status:DEP ER Location: ED HPI History of Present Illness Chief Complaint: Dizziness PFSH [facility] Medical History (Updated 01/15/18 @ 08:39 by Candice Ansari) Abdominal pain Asthma Diarrhea Nausea vomiting Home Medications albuterol sulfate 90 mcg/actuation aerosol inhaler (ProAir HFA) 2 puff inhalation Q6H PRN Asthma 12/22/17 [History Last Taken Unknown] norgestimate 0.25 mg-ethinyl estradiol 35 mcg tablet (Sprintec (28)) 1 tab PO QDAY 12/22/17 [History Last Taken Unknown] Allergy/AdvReac Type Severity Reaction Status Date / Time ibuprofen Allergy Severe Throat Verified 06/01/23 19:22 swelling Family History Grandmother Asthma Heart disease Colon cancer Surgical History (Updated 01/15/18 @ 08:39 by Candice Ansari) History of colonoscopy ( 2006) History of endoscopy ( 2006) Hx of cholecystectomy Social History (Updated 01/15/18 @ 10:12 by Yunier NEGRETE, PAGregC) Smoking Status: Never smoker alcohol intake: never substance use type: does not use EXAM Physical Exam Const Vital Signs: 06/01/23 19:22 06/01/23 20:20 06/01/23 22:28 Temperature 97.3 F L Temperature Source Temporal Pulse Rate 114 H 104 H Respiratory Rate 18 16 Blood Pressure 148/99 H 140/60 H Blood Pressure Mean 115 86 Pulse Ox 100 97 Oxygen Delivery Method Room Air MDM MDM MDM Narrative Medical decision making narrative: HISTORY OF PRESENT ILLNESS: 37-year-old female here with concern for dizziness. 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 Notes the symptoms essentially resolved. Denies any chest pain, shortness of breath, palpitations, recent vomiting, diarrhea, recent bleeding diathesis. The patient denies recent surgery in the last 4 weeks or immobilization in the last 3 days, denies previous diagnosis of DVT or PE, hemoptysis, unilateral leg swelling or malignancy with treatment the last 6 months or palliative. No estrogen use noted. Patient denies sudden onset of pain, no tearing sensation, no migratory symptoms, no new numbness, weakness or loss of sensation. Patient denies family history or personal history of Connective ti ssue disorders (Marfan's Syndrome, Ricardo Danlos etc) Order REVIEW OF SYSTEMS: Pertinent positives: Dizziness, diffuse weakness Pertinent negatives: Focal weakness, vomiting, fever, shortness of breath, chest pain, PHYSICAL EXAM: Nursing triage notes reviewed, Vital signs reviewed Constitutional: please see mdm HENT: MMM Eyes: Pupils equal round and reactive to light, Extraocular muscles intact Neck: No stridor, no JVD, full neck ROM Lungs: Clear to auscultation, No wheezing or rales. No increased work of breathing, no conversational dyspnea, no accessory muscle use, no nasal flaring. No respiratory distress noted Heart: Regular rate and rhythm, No murmurs, No rubs and No gallops, 2+ distal pulses (radial, femoral, posterior tibial) in all extremities Abdomen: Soft, there is no tenderness, rigidity, rebound or guarding, no obvious peritoneal signs, no palpable pulsatile abdominal masses, no auscultated abdominal bruit : No CVAT Extremities: No edema Neuro: Alert and oriented x3, neuro exam at baseline, cranial nerves II through XII are intact. No pain with extraocular muscle movement. There is negative test of skew. 5 of 5 strength in upper and lower extremities in flexion extension. Intact sensation to light touch in upper and lower extremity dermatomes. No truncal or extremity ataxia. No dysdiadochokinesia. Normal gait. 2+ reflexes in upper and lower extremities. No meningeal signs. Negative Babinski. NIH of 0. Skin: No rash or lesions noted MEDICAL DECISION MAKING: Chief Complaint: Dizziness External records reviewed: No recent cardiac catheterizations, echocardiograms or stress test noted in the chart. No recent Niño imaging of the brain Factors affecting care: History of cholecystectomy Social determinants of health: none History obtained from others: none Consults: none MDM Narrative: The patient presents hemodynamically stable, afebrile and nontoxic-appearing. Exam without focal neurologic deficits. No focal cardiopulmonary normalities I considered the following differential diagnosis: Posterior circulation CVA, aortic dissection, PE, ACS ALL IMAG (more content not included)... Normal [facility] Hematocrit Auto (Bld) [Volum e fraction]Ordered By: Boyd Roberts on 06-01-2023 Hematocrit (Bld) [Volume fraction] 43.4 % 37-47 [facility] L501.5425on 06-01-2023 TROPONIN-I HS 4 pg/mL Normal 3.0-54.0 [facility] Comment on above: Order Comment: 1 Y Result Comment: José Miguel edmond Note: New Test Units and Gender Specific Reference Ranges. For more information see Policy Stat Procedure [place] High Sensitivity Troponin (TNIH) and attachments. Performed By: #### L 100.0100, L500.2500, L501.5425, L503.6620 #### [facility] [address] [place], [address] Laboratory - Chemistry and C hemistry - challengeOrdered By: Boyd Roberts on 06-01-2023 CO2 [Moles/Vol] 26.0 mmol/L 21.0-32.0 [facility] Natriuretic peptide B (Bld) [Mass/Vol] pg/mL 0-100 [facility] Urea nitrogen/Creatinine [Mass ratio] 8.0 mg/mg 10-20 [facility] Laboratory - Hematology and Cell countsOrdered By: Boyd Roberts on 06-01-2023 Erythrocyte distribution width (RBC) [Entitic vol] 37.4 fL 35.1-43.9 [facility] Erythrocyte distribution width (RBC) [Ratio] 12.9 % 11.6-14.6 [facility] Immature granulocytes/100 WBC (Bld) 0.400 % 0.0-0.9 [facility] Comment on above: IG% - Immature Granu locytes (promyelocytes, myelocytes and metamyelocytes) > 1% indicates that a LEFT SHIFT is Present. MCH (RBC) [Entitic mass] 26.4 pg 27.0-32.0 [facility] Nucleated RBC/100 WBC (Bld) [Ratio] 0 % 0-5 [facility] MCHC Auto (RBC) [Mass/Vol]Or dered By: Boyd Roberts on 06-01-2023 MCHC (RBC) [Mass/Vol] 32.7 g/dL 32-36 [facility] No Panel InformationOrdered By: Boyd Roberts on 06-01-2023 Estimated Creatinine Clearance Calc 65.01 ml/min [facility] Estimated GFR (MDRD) Amer 71 mL/min >60 [facility] Comment on above: GFR Calc Estimated GFR (MDRD) Non-Af Amer 58 mL/min >60 [facility] Comment on above: Non- GFR Calc Troponin I High Sensitivity 4 pg/mL 3.0-54.0 [facility] Comment on above: Please Note: New Leatha t Units and Gender Specific Reference Ranges. For more information see Policy Stat Procedure [place] High Sensitivity Troponin (TNIH) and attachments. Platelets bldOrdered By: Eric Roberts on 06-01-2023 Platelets (Bld) [#/Vol] 305 10*3/uL 150-450 [facility] Serum or plasma calcium kristina urement (mass/volume)Ordered By: Boyd Roberts on 06-01-2023 Calcium [Mass/Vol] 9.1 mg/dL 8.5-10.1 [facility] Serum or plasma creatinine m easurement (mass/volume)Ordered By: Boyd Roberts on 06-01-2023 Creatinine [Mass/Vol] 1.12 mg/dL 0.55-1.02 [facility] Comment on above: The validity of the calculated GFR & GFRAA in patients over 70 years has not been determined. Clinical correlation is essential. Serum or plasma urea nitroge n measurement (mass/volume)Ordered By: Boyd Roberts on 06-01-2023 Urea nitrogen [Mass/Vol] 9 mg/dL 7-18 [facility] Thin prep Papanicolaou smear with manual screeningOrdered By: Boyd Roberts on 06-01-2023 Thin prep Papanicolaou smear with manual screening 6 5-15 [facility] PAP IG HPV APTIMA 16/18,45on 09-05-2022 ADEQ Comment Normal . [facility] Comment on above: Order Comment: CYTOL OGY INFORMATION: - CLINICAL INFORMATION: ANNUAL - Non - DATE LMP/MENOPAUSE: 07/25/22 LMP - COLLECTION VIAL: Thin Prep Vial - COMPETITIVE INTELLIGENCE ANALYST SOURCE: CERVICAL/ENDOCERVICAL - COLLECTION TECHNIQUE: BRUSH/SPATULA Specimen Comment: [id number] Specimen Comment: Source.............Cervix;Endocervix Specimen Comment: LMP / Prev Treat...[id number] Specimen Comment: No. of containers..01 ThinPrep Vial Result Comment: Sati sfactory for evaluation. Endocervical and/or squamous metaplastic cells (endocervical component) are present. Performed By: #### L 7400.0280 #### [facility] [address] [place], [place], [id number] COMMENT Comment Normal . [facility] Comment on above: Order Comment: CYTOL OGY INFORMATION: - CLINICAL INFORMATION: ANNUAL - Non - DATE LMP/MENOPAUSE: 07/25/22 LMP - COLLECTION VIAL: Thin Prep Vial - COMPETITIVE INTELLIGENCE ANALYST SOURCE: CERVICAL/ENDOCERVICAL - COLLECTION TECHNIQUE: BRUSH/SPATULA Specimen Comment: [id number] Specimen Comment: Source.............Cervix;Endocervix Specimen Comment: LMP / Prev Treat...[id number] Specimen Comment: No. of containers..01 ThinPrep Vial Result Comment: This liquid based ThinPrep(R) pap test was screened with the use of an image guided system. Performed By: #### L 7400.0280 #### [facility] [address] [place], [place], [id number] DIAG Comment Normal . [facility] Comment on above: Order Comment: CYTOL OGY INFORMATION: - CLINICAL INFORMATION: ANNUAL - Non - DATE LMP/MENOPAUSE: 07/25/22 LMP - COLLECTION VIAL: Thin Prep Vial - COMPETITIVE INTELLIGENCE ANALYST SOURCE: CERVICAL/ENDOCERVICAL - COLLECTION TECHNIQUE: BRUSH/SPATULA Specimen Comment: [id number] Specimen Comment: Source.............Cervix;Endocervix Specimen Comment: LMP / Prev Treat...[id number] Specimen Comment: No. of containers..01 ThinPrep Vial Result Comment: NEGA TIVE FOR INTRAEPITHELIAL LESION OR MALIGNANCY. Performed By: #### L 7400.0280 #### [facility] [address] [facility] [place], [place], [id number] HPV APTIMA, HR Negative Normal Negative [facility] Comment on above: Order Comment: CYTOL OGY INFORMATION: - CLINICAL INFORMATION: ANNUAL - Non - DATE LMP/MENOPAUSE: 07/25/22 LMP - COLLECTION VIAL: Thin Prep Vial - COMPETITIVE INTELLIGENCE ANALYST SOURCE: CERVICAL/ENDOCERVICAL - COLLECTION TECHNIQUE: BRUSH/SPATULA Specimen Comment: [id number] Specimen Comment: Source.............Cervix;Endocervix Specimen Comment: LMP / Prev Treat...[id number] Specimen Comment: No. of containers..01 ThinPrep Vial Result Comment: This nucleic acid amplification test detects fourteen high- risk HPV types (16,18,31,33,35,39,45,51,52,56,58,59,66,68) without differentiation. Performed By: #### L 7400.0280 #### [facility] [address] [place], [place], [id number] HPV Makayla Rfx Comment Normal . [facility] Comment on above: Order Comment: CYTOL OGY INFORMATION: - CLINICAL INFORMATION: ANNUAL - Non - DATE LMP/MENOPAUSE: 07/25/22 LMP - COLLECTION VIAL: Thin Prep Vial - COMPETITIVE INTELLIGENCE ANALYST SOURCE: CERVICAL/ENDOCERVICAL - COLLECTION TECHNIQUE: BRUSH/SPATULA Specimen Comment: [id number] Specimen Comment: Source.............Cervix;Endocervix Specimen Comment: LMP / Prev Treat...[id number] Specimen Comment: No. of containers..01 ThinPrep Vial Result Comment: Crit eria not met, HPV Genotype not performed. Performed at: - [facility] [id number] [employer]: Deb Rodriguez MD, Phone: [phone] Performed at: = - [facility] [id number] [employer]: Deb Rodriguez MD, Phone: [phone] Performed By: #### L 7400.0280 #### [facility] [address] [place], [place], [id number] PAPSMR Comment Normal . [facility] Comment on above: Order Comment: CYTOL OGY INFORMATION: - CLINICAL INFORMATION: ANNUAL - Non - DATE LMP/MENOPAUSE: 07/25/22 LMP - COLLECTION VIAL: Thin Prep Vial - COMPETITIVE INTELLIGENCE ANALYST SOURCE: CERVICAL/ENDOCERVICAL - COLLECTION TECHNIQUE: BRUSH/SPATULA Specimen Comment: [id number] Specimen Comment: Source.............Cervix;Endocervix Specimen Comment: LMP / Prev Treat...[id number] Specimen Comment: No. of containers..01 ThinPrep Vial Result Comment: The Pap smear is a screening test designed to aid in the detection of premalignant and malignant conditions of the uterine cervix. It is not a diagnostic procedure and should not be used as the sole means of detecting cervical cancer. Both false-positive and false-negative reports do occur. Performed By: #### L 7400.0280 #### [facility] [address] [place], [place], [id number] PERFORM Comment Normal . [facility] Comment on above: Order Comment: CYTOL OGY INFORMATION: - CLINICAL INFORMATION: ANNUAL - Non - DATE LMP/MENOPAUSE: 07/25/22 LMP - COLLECTION VIAL: Thin Prep Vial - COMPETITIVE INTELLIGENCE ANALYST SOURCE: CERVICAL/ENDOCERVICAL - COLLECTION TECHNIQUE: BRUSH/SPATULA Specimen Comment: [id number] Specimen Comment: Source.............Cervix;Endocervix Specimen Comment: LMP / Prev Treat...[id number] Specimen Comment: No. of containers..01 ThinPrep Vial Result Comment: Azul Chirinos Web Content Producer (ASCP) Performed By: #### L 7400.0280 #### [facility] [address] [place], [place], [phone] COMM . Normal . [facility] Comment on above: Order Comment: CYTOL OGY INFORMATION: - CLINICAL INFORMATION: ANNUAL - Non - DATE LMP/MENOPAUSE: 07/25/22 LMP - COLLECTION VIAL: Thin Prep Vial - COMPETITIVE INTELLIGENCE ANALYST SOURCE: CERVICAL/ENDOCERVICAL - COLLECTION TECHNIQUE: BRUSH/SPATULA Specimen Comment: [id number] Specimen Comment: Source.............Cervix;Endocervix Specimen Comment: LMP / Prev Treat...[id number] Specimen Comment: No. of containers..01 ThinPrep Vial Performed By: #### L 7400.0280 #### [facility] [address] [place], [place], [id number] Gram stain for investigation of transfusion reaction Microscopic observation Gram stain Nom (Unsp spec) [facility] Work Phone: Vital Signs Date Time Vital Sign Value Performing Clinician Mulu vegas 06-01-2023 22:28-0500 Diastolic blood pressure 60 mm[Hg] [facility] 06-01-2023 22:28-0500 Heart rate 104 /min [facility] 06-01-2023 22:28-0500 Respiratory rate 16 /min [facility] 06-01-2023 22:28-0500 SaO2% (BldA) [Mass fraction] 97 % [facility] 06-01-2023 22:28-0500 Systolic blood pressure 140 mm[Hg] [facility] 06-01-2023 19:22-0500 Body height 167.64 cm [facility] 06-01-2023 19:22-0500 Body mass index (BMI) [Ratio] 44.6 kg/m2 [facility] 06-01-2023 19:22-0500 Body temperature 97.3 [degF] [facility] 06-01-2023 19:22-0500 Body weight 125.5 kg [facility] Encounters Encounter Date Encounter Type Care Provider Facility Start: 03-13-2025 End: 03-13-2025 ambulatory KEATON WISE Facility:[facility] Start: 06-01-2023 End: 06-02-2023 Emergency department patient visit [facility] Facility:[facility] Start: 06-01-2023 End: 06-01-2023 Emergency department patient visit [facility] Work Phone: Start: 08-26-2022 End: 08-26-2022 Patient encounter procedure [facility], Specimen Start: 08-26-2022 End: 08-26-2022 ambulatory Wendie Valdez [facility] Work Phone: Start: 01-27-2022 End: 01-27-2022 Patient encounter procedure [facility], Specimen Procedures Date Procedure Procedure Detail Performing Clinician Start: 06-01-2023 Plain chest X-ray History of cholecystectomy Hx of cholecys tectomy Investigation of transfusion reaction Microbial culture, routine Plan of Treatment Date Care Activity Detail Author Start: 06-01-2023 Troponin I measurement [facility] Start: 06-01-2023 End: 06-01-2023 [facility] Path report.final Dx Spec [facility] Patient Education ED Dizziness, Uncertain Cause ED Near-Fainting- Vagal Reaction [facility] Work Phone: Patient referral [facility] Work Phone: [facility] Payers Date Payer Category Payer Unknown [id number] 2022 Self-pay [id number] 2022 Unknown [id number] Unknown [id number] Unknown [id number] Social History Date Type Detail Facility Start: 01-15-2018 End: 06-01-2023 Tobacco smoking status NHIS Unknown if ever smoked [facility] Start: 1985 Sex Assigned At Female [facility] Medical Equipment Procedure Code Equipment Code Equipment Origin al Text Equipment Identifier Dates MANAV BENITEZ [employer] Start: 01-01-2018 MANAV BENITEZ FDA Start: 01-01-2018 MANAV BENITEZ FDA Start: 01-01-2018 MANAV BENITEZ FDA Start: 01-01-2018 MANAV BENITEZ FDA Start: 01-01-2018 MANAV BENITEZ FDA Start: 01-01-2018 Mental Status Date Assessment Result Facility 06-01-2023 Cognitive function Level Of Cons ciousness Awake;Alert;Appropriate;Follow s Commands [facility] Work Phone: Progress note 03-13-2025 Note Date & Type Note Facility 03-13-2025 Note HNO ID: [id number] Author: ALEXSANDER MONROE MD Service: ? Author Type: Physician Type: Progress Notes Filed: 03/13/2025 17:52 Note Text: [facility] Dayo Cahpman is a 39 year old female. Patient presents with: Wheezing chest tightness Shortness of Breath Chest Congestion Patient presents for wheezing that started yesterday. She had initial cold started couple weeks weeks ago and has been slowly improving with lingering nasal congestion and cough. She has had improved sore throat, rhinorrhea, and postnasal drainage. She denies any fever, chills, palpitations. Body aches may be slightly worse than normal. Yesterday she noticed wheezing and chest tightness. She notices some dyspnea with conversation but has no shortness of breath with ambulation across the parking lot. She has a history of exercise-induced asthma. She had bronchitis or pneumonia last year. She has taken nothing for symptoms. Wheezing Associated symptoms include shortness of breath. Shortness of Breath Associated symptoms include wheezing. Review of Systems Respiratory: Positive for shortness of breath and wheezing. Objective BP 126/78 Pulse 96 Temp 36.1 ?C (97 ?F) (Tympanic) Resp 16 Wt 120.8 kg (266 lb 5.1 oz) LMP 03/01/2025 SpO2 99% Physical Exam Constitutional: General: She is not in acute distress. HENT: Right Ear: Tympanic membrane and ear canal normal. Left Ear: Tympanic membrane and ear canal normal. Nose: Congestion present. Right Sinus: No maxillary sinus tenderness or frontal sinus tenderness. Left Sinus: No maxillary sinus tenderness or frontal sinus tenderness. Mouth/Throat: Mouth: Mucous membranes are moist. Pharynx: Posterior oropharyngeal erythema present. No oropharyngeal exudate. Eyes: Extraocular Movements: Extraocular movements intact. Conjunctiva/sclera: Conjunctivae normal. Pupils: Pupils are equal, round, and reactive to light. Cardiovascular: Rate and Rhythm: Normal rate and regular rhythm. Heart sounds: No murmur heard. Pulmonary: Effort: No respiratory distress. Breath sounds: No wheezing, rhonchi or rales. Musculoskeletal: Cervical back: Neck supple. Lymphadenopathy: Cervical: No cervical adenopathy. Neurological: Mental Status: She is alert. {ASSESSMENT/PLAN: 1. Wheezing - ICD9: 786.07, ICD10: R06.2 Exacerbation of reactive airway disease. Treated with steroid and bronchodilator. - ALBUTEROL SULFATE HFA 90 MCG/ACTUATION AEROSOL INHALER - INHALATIONAL SPACING DEVICE - PREDNISONE 10 MG TABLET Follow up with worsening cough, worsening shortness of breath, increasing chest pain, palpitations, or late onset fever. Alexsander Monroe MD Differential Diagnoses - Reactive airway disease exacerbated by viral URI - Pneumonia is less likely for the following reason(s): Normal exam, afebrile, mostly nonproductive cough - Pulmonary embolism is less likely for the following reason(s): HANDP not suggestive - Acute cardiovascular event is less likely for the following reason(s): HANDP not suggestive Procedures [facility] Evaluation note Note Date & Type Note Facility Evaluation note No assessment information availa ble [facility] Work Phone: Hospital Discharge instructions Note Date & Type Note Facility Hospital Discharge instructions Additional Instructions Thank you for trusting us with your care today! Please take Tylenol (2 pills, 650 mg), ibuprofen (2 pills, 400 mg) every 6 hours as needed for pain and fever control. Please return to the emergency department if your symptoms change or worsen. Please follow with your primary care physician for further outpatient evaluation and management. [facility] Work Phone: Family History No Family History Records Found Relationship Condition Age at Onset Recorded Date/T carlo grandmother Asthma Unknown Cardiac disease Unknown Malignant neoplasm of colon Unknown Advance Directives No Advanced Directives Records Found Advance Directive Response Recorded Date/ Time Living Will No December 26, 2017 3:17pm Power of Ring Packer No December 26 8 3:17pm Advance Directive Response Recorded Date/ Time Living Will No June 01, 023 7:28pm Power of Ring Packer No June 01, 2023 7:28pm Summary Purpose Chief Complaint and Reason for Visit Chief Complaint Dizziness, arm pain, legs heavy Additional Source Comments Goals (unrecognized section and content) Goals may be documented in a n alternate sectionGoals may be documented in an alternate sectionGoals may be documented in an alternate section Care Teams (unrecognized sec tion and content) Team Status: Active Member Role Status Dates Dr. Keaton Wise MD Family Provider Active Dr. Keaton Wise MD Primary Care Provider Active Team Status: Inactive Member Role Status Dates Dr. Keaton Wise MD Primary Care Provider Active Dr. Wendie Valdez DO Attending Provider Active Team Status: Inactive Member Role Status Dates Dr. Keaton Wise MD Primary Care Provider Active Dr. Boyd Roberts DO Emergency Provider Active INFORMATION SOURCE (unrecogn ized section and content) DATE CREATED AUTHOR 06/08/2023 [facility] DATE CREATED AUTHOR AUTHOR'S LEVAR HOYOS 03/21/2025 [facility] FOR RECORDS PERTAINING TO PATIENTS WHO ARE OR HAVE BEEN ENROLLED IN A CHEMICAL DEPENDENCY/SUBSTANCEABUSE PROGRAM, SOME INFORMATION MAY BE OMITTED. This clinical summary was aggregated from multiple sources. Caution should be exercised in using it in the provision of clinical care. This summary normalizes information from multiple sources, and as a consequence, information in this document may materially change the coding, format and clinical context of patient data. In addition, data may be omitted in some cases. CLINICAL DECISIONS SHOULD BE BASED ON THE PRIMARY CLINICAL RECORDS. [facility] [employer] [facility]. provides no warranty or guarantee of the accuracy or completeness of information in this document.
[2025-05-07 18:21] LABS: Follicle Stimulating Hormone 41.0 mIU/mL
== END | disposition home or self-care (01) ==
LOC: MFPLAB 14:39
PROVIDERS: PCP Family Medicine
DX: N95.1 Menopausal and female climacteric states (principal)
CPT/HCPCS: 36415; 83001; 83002